=== PATIENT | female | born 1960 | race Hispanic/Latino ===

== ENCOUNTER 2017-11-13 08:47 | Day surgery (SDC) | payer SELFPAY ==
[~2017-11-13] VITALS: Ht 167.6 cm; Wt 73.9 kg
[~2017-11-13 08:47] MED LIST: LEVOTHYROXIN50 MC1 PO; PRILOSEC20 MG PO
[2017-11-13] MEDS ORDERED: CARAFATE1 GM PO (10:53)
[2017-11-13 11:04] VITALS: BP 140/65
== END 2017-11-13 11:17 | disposition home or self-care (01) | DRG 392 ==
LOC: ENDO 08:47 → ORM 10:30 → ENDO 11:17 → PO 11:30 → ORM 11:30
PROVIDERS: ATTEND Surgery
PROC: 0DB78ZX Excision of Stomach, Pylorus, Via Natural or Artificial Opening Endoscopic, Diagnostic (ICD-10-PCS; principal; 2017-11-13)
DX: K29.70 Gastritis, unspecified, without bleeding (principal); K20.9 Esophagitis, unspecified; Q40.2 Other specified congenital malformations of stomach; K29.80 Duodenitis without bleeding; K44.9 Diaphragmatic hernia without obstruction or gangrene; E03.9 Hypothyroidism, unspecified